=== PATIENT | male | born 1970 | race Caucasian/White ===

== ENCOUNTER 2018-02-10 08:54 | Outpatient (CLI) | payer OTHER ==
[2018-02-10] MEDS ORDERED: GADOBUTROL 10 MMOL/10 ML VIAL ONE (09:00)
[2018-02-10] MEDS ORDERED: GADOBUTROL 10 MMOL/10 ML VIAL IVP ONE (09:57)
--- NOTE | 2018-02-10 15:57 | MRI Report ---
Reason: HEADACHE Procedure Date: 02/10/2018 Accession Number: [id number] / [id number] Procedure: MRI - Brain W/WO CPT Code: FULL RESULT: EXAM: MRI BRAIN WITHOUT AND WITH CONTRAST EXAM DATE: 02/10/2018 09:05 AM. CLINICAL HISTORY: Headache. COMPARISON: No prior MRI. TECHNIQUE: Multiplanar, multisequence T1-weighted and fluid-sensitive MR sequences of the brain were performed. Sequences optimized for routine evaluation. Other: None. IV Contrast: 10 mL Gadavist. Per the communications technologist's notes placed on the exam requisition, the patient had allergic reaction to 10 mL IV Gadavist, hives were observed and on-site staff Dr. Braden was notified and he administered 50 mg of Benadryl intravenously. The patient was then reportedly observed starting at 10:10 AM and released at 10:45 AM after symptoms had resolved. FINDINGS: Brain Volume: Normal for age. 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 No other midline cerebral anomaly. No restricted diffusion to suggest acute or recent ischemic infarct. No evidence for cerebral hemorrhage or edema. No mass effect, midline shift or abnormal subdural fluid collection. Normal-appearing white matter. No intracranial enhancing or space-occupying mass. Ventricles/Cisterns: No hydrocephalus. No abnormal extra-axial fluid collection or hemorrhage. Orbits: No significant asymmetry or focal mass. Borderline findings of symmetric proptosis, clinical correlation is suggested. Sella Turcica: The pituitary gland, cavernous sinuses, suprasellar cistern and optic chiasm are unremarkable. IAC: Symmetric and unremarkable. Vasculature: Normal signal flow void is seen in the major arterial structures at the skull base. The dural sinuses are patent and enhance normally. Sinuses: No acute sinus disease. Bones: No focal pathologic appearing marrow signal changes. Other: None. IMPRESSION: 1. 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 2. No acute intracranial abnormality or enhancing mass, otherwise unremarkable appearance of the brain. 3. Possible symmetric exophthalmus, clinical correlation is suggested. No focal or asymmetric intraorbital mass is identified. RADIA
== END 2018-02-10 08:55 | disposition home or self-care (01) ==
LOC: DI 08:54
PROVIDERS: ATTEND Nurse Practitioner Family
DX: R51 Headache (principal)
CPT/HCPCS: 70553; A9585

== ENCOUNTER 2020-04-09 09:34 | Day surgery (SDC) | payer OTHER ==
[2020-04-09] MEDS ORDERED: LACTATED RINGERS 1,000 ML IV ONE ×2 (09:41→11:48)
[2020-04-09] MEDS ORDERED: MIDAZOLAM 2 MG/2 ML VIAL ONE (11:21)
[2020-04-09] MEDS ORDERED: fentaNYL 250 MCG/5 ML VIAL ONE (11:21)
[2020-04-09 12:16] VITALS: BP 126/92
== END 2020-04-09 09:35 | disposition home or self-care (01) ==
LOC: SDS 09:34
PROVIDERS: ATTEND Surgery
PROC: 0DBL8ZZ Excision of Transverse Colon, Via Natural or Artificial Opening Endoscopic (ICD-10-PCS; 2020-04-09)
PROC: 0DBN8ZX Excision of Sigmoid Colon, Via Natural or Artificial Opening Endoscopic, Diagnostic (ICD-10-PCS; 2020-04-09)
PROC: 0DBP8ZZ Excision of Rectum, Via Natural or Artificial Opening Endoscopic (ICD-10-PCS; 2020-04-09)
PROC: 0DBH8ZX Excision of Cecum, Via Natural or Artificial Opening Endoscopic, Diagnostic (ICD-10-PCS; principal; 2020-04-09 10:30)
DX: K62.5 Hemorrhage of anus and rectum (principal); D12.3 Benign neoplasm of transverse colon; K62.1 Rectal polyp; R19.4 Change in bowel habit; R10.32 Left lower quadrant pain; K64.8 Other hemorrhoids
CPT/HCPCS: 45380; J3010; J7120

== ENCOUNTER 2020-04-15 15:16 | Outpatient (CLI) | payer OTHER | END 2020-04-15 15:17 | disposition critical access hospital (66) | LOC: EMS 15:16 | PROVIDERS: ATTEND Emergency Medicine | DX: R07.9 Chest pain, unspecified (principal) | CPT/HCPCS: A0425; A0427 ==

== ENCOUNTER 2020-04-15 15:39 | Emergency (ER) | payer OTHER ==
[2020-04-15 16:00] LABS: BASOPHILS % (AUTO) 0.3 %; EOSINOPHILS # (AUTO) 0.4 10^3/uL (0.0-0.7); EOSINOPHILS % (AUTO) 3.8 %; HGB - HEMOGLOBIN 15.9 g/dL (14.0-18.0); LYMPHOCYTES # (AUTO) 2.2 10^3/uL (1.5-3.5); LYMPHOCYTES % (AUTO) 22.1 %; MEAN CORPUSCULAR HEMOGLOBIN 29.1 pg (27.0-31.0); MEAN CORPUSCULAR HGB CONC 33.5 g/dL (32.0-36.0); MEAN CORPUSCULAR VOLUME 86.8 fL (80.0-94.0); MONOCYTES # (AUTO) 0.6 10^3/uL (0.0-1.0); MONOCYTES % (AUTO) 5.8 %; NEUTROPHILS # (AUTO) 6.8 10^3/uL (1.5-6.6); NEUTROPHILS % (AUTO) 67.8 %; PLT - PLATELET COUNT 264 10^3/uL (130-450); RED BLOOD COUNT 5.46 10^6/uL (4.70-6.10); RED CELL DISTRIBUTION WIDTH 12.7 % (12.0-15.0); WHITE BLOOD COUNT 10.1 x10^3/uL (4.8-10.8)
--- NOTE | 2020-04-15 16:12 | XRAY Report ---
PROCEDURE: Chest 1 View X-Ray INDICATIONS: Chest Pain TECHNIQUE: One view of the chest was acquired. COMPARISON: FINDINGS: Surgical changes and devices: None. Lungs and pleura: No pleural effusions or pneumothorax. Lungs are clear. Mediastinum: Mediastinal contours appear normal. Heart size is normal. Bones and chest wall: No suspicious bony lesions. Overlying soft tissues appear unremarkable. IMPRESSION: No acute disease Reviewed by: Foreign Mclean MD on 04/15/2020 4:10 PM PST Approved by: Foreign Mclean MD on 04/15/2020 4:10 PM PST Station ID: [id number]
[2020-04-15 16:16] LABS: ALBUMIN 4.3 g/dL (3.2-5.5); ALBUMIN/GLOBULIN RATIO 1.5 (1.0-2.2); BILIRUBIN,TOTAL 0.9 mg/dL (0.2-1.0); CALCIUM 9.2 mg/dL (8.5-10.3); CREATININE 1.1 mg/dL (0.6-1.2); TOTAL PROTEIN 7.2 g/dL (6.7-8.2)
[2020-04-15] MEDS ORDERED: ASPIRIN CHEW 81 MG TABLET PO STA (16:21)
--- NOTE | 2020-04-15 16:31 | ED Physician Documentation ---
PD HPI CHEST PAIN - Stated complaint Stated Complaint: CP/TIGHTNESS - Chief complaint Chief Complaint: Cardiac - History obtained from History obtained from: Patient - Additional information Additional information: 49-year-old male presents to the emergency department with chest tightness that started about 2-1/2 hours prior to arrival. Symptoms are now resolved. He states that he was taking his daughter to her first volleyball game. Has a history of anxiety and initially thought that this may be due to his anxiety, but states that his heart "did something it should not do". Unable to describe this further. The chest tightness is nonradiating. Has never had any cardiac issues in the past. States has had normal cardiac work-ups in the past. No recent fevers, chills, cough. Review of Systems Ten Systems: 10 systems reviewed and negative Constitutional: denies: Fever, Chills Throat: denies: Sore throat Respiratory: denies: Cough GI: denies: Nausea, Vomiting, Diarrhea Skin: denies: Rash Musculoskeletal: denies: Neck pain, Back pain Neurologic: denies: Headache PD PAST MEDICAL HISTORY - Past Medical History Past Medical History: Yes Cardiovascular: Hypertension Psych: Anxiety, Post traumatic stress disorder - Past Surgical History Past Surgical History: Yes Ortho: ACL reconstruction, Other HEENT: Rhinoplasty - Present Medications Home Medications: Ambulatory Orders Medication Instructions Recorded Confirmed Atorvastatin [Lipitor] 40 mg PO DAILY 04/08/20 04/15/20 LORazepam [Ativan] 0.5 mg PO BID PRN #5 04/15/20 - Allergies Allergies/Adverse Reactions: Allergies Allergy/AdvReac Type Severity Reaction Status Date / Time gadobutrol [From Gadavist] Allergy Mild Hives Verified 02/10/18 13:21 bee venom protein (honey bee) Allergy Anaphylaxis Verified 10/09/19 17:06 dexamethasone [From Decadron] Allergy Hallucinati Verified 10/09/19 17:06 ons lisinopril Allergy Unknown Verified 04/15/20 15:55 - Social History Does the pt smoke?: No Smoking Status: Never smoker Does the pt drink ETOH?: No Does the pt have substance abuse?: No Substance Use and Type: Marijuana - Immunizations Immunizations are current?: Yes - POLST Patient has POLST: No PD ED PE NORMAL - Vitals Vital signs reviewed: Yes - General General: Alert and oriented X 3, No acute distress - HEENT HEENT: Moist mucous membranes - Neck Neck: Supple, no meningeal sign - Cardiac Cardiac: RRR, Strong equal pulses - Respiratory Respiratory: No respiratory distress, Clear bilaterally - Abdomen Abdomen: Soft, Non tender, Non distended - Derm Derm: Warm and dry - Extremities Extremities: No edema, No calf tenderness / cord - Neuro Neuro: Alert and oriented X 3 - Psych Psych: Normal mood, Normal affect Results - Vitals Vitals: Vital Signs - 24 hr 04/15/20 04/15/20 04/15/20 15:51 16:00 17:38 Temperature 36.8 C 37.1 C Heart Rate 96 87 83 Respiratory 14 11 L 18 Rate Blood Pressure 150/98 H 124/94 H 110/88 H O2 Saturation 97 92 98 Oxygen O2 Source Room air - EKG (time done) 1543 Rate: Rate (enter#) (86) Rhythm: NSR [place]: Normal Intervals: Normal [place] QRS: Normal Ischemia: Non specific changes - Labs Labs: Laboratory Tests 04/15/20 04/15/20 04/15/20 15:53 15:53 15:53 WBC 10.1 RBC 5.46 Hgb 15.9 Hct 47.4 MCV 86.8 MCH 29.1 MCHC 33.5 RDW 12.7 Plt Count 264 MPV 9.0 Neut # (Auto) 6.8 H Lymph # (Auto) 2.2 [place] # (Auto) 0.6 Eos # (Auto) 0.4 Baso # (Auto) 0.0 Absolute Nucleated RBC 0.00 Nucleated RBC % 0.0 Sodium 138 Potassium 3.2 L Chloride 103 Carbon Dioxide 21 Anion Gap 14.0 H BUN 18 Creatinine 1.1 Estimated GFR (MDRD) 71 L Glucose 114 H Calcium 9.2 Total Bilirubin 0.9 AST 29 ALT 39 Alkaline Phosphatase 56 Troponin I High Sens 5.1 Total Protein 7.2 Albumin 4.3 Globulin 2.9 Albumin/Globulin Ratio 1.5 Lipase 20 L 04/15/20 17:50 WBC RBC Hgb Hct MCV MCH MCHC RDW Plt Count MPV Neut # (Auto) Lymph # (Auto) [place] # (Auto) Eos # (Auto) Baso # (Auto) Absolute Nucleated RBC Nucleated RBC % Sodium Potassium Chloride Carbon Dioxide Anion Gap BUN Creatinine Estimated GFR (MDRD) Glucose Calcium Total Bilirubin AST ALT Alkaline Phosphatase Troponin I High Sens 9.2 Total Protein Albumin Globulin Albumin/Globulin Ratio Lipase - Rads (name of study) cxr Radiology: Prelim report reviewed, EMP read contemporaneously, See rad report (no acute disease) PD MEDICAL DECISION MAKING - ED course Complexity details: reviewed results, re-evaluated patient, considered differential (No ST elevation [place], no aortic dissection, no PE, no tension pneumothorax, no aortic aneurysm), d/w patient ED course: 49-year-old male presents with chest pain today. Negative troponin x2. No acute findings on EKG or chest x-ray. Symptoms resolved in the emergency department. He states he has a normal cardiac work-ups in the past. Patient is well-appearing, nontoxic. Afebrile. No hypoxia. No respiratory distress. No evidence of PE, pneumothorax, ACS. Patient counseled regarding signs and symptoms for which I believe and urgent re-evaluation would be necessary. Patient with good understanding of and agreement to plan and is comfortable going home at this time This document was made in part using voice recognition software. While efforts are made to proofread this document, sound alike and grammatical errors may occur. Departure - Departure Disposition: 01 Home, Self Care Clinical Impression: Anxiety Chest pain Qualifiers: Chest pain type: unspecified Qualified Code(s): R07.9 - Chest pain, unspecified Condition: Good Instructions: ED Chest Pain Atypical Unkn Cause Follow-Up: BRITT DAVENPORT ARNP [Primary Care Provider] - Within 1 week Prescriptions: LORazepam [Ativan] 0.5 mg PO BID PRN #5 PRN Reason: Anxiety Comments: Follow-up with your doctor for further care. Return if you worsen. You should start on a baby aspirin daily. You should follow-up with your doctor within the next week to have a cardiac stress test performed. Your testing is normal tonight. You are not to drive or operate heavy machinery while taking the ativan. Discharge Date/Time: 04/15/20 20:21
[2020-04-15 17:38] VITALS: BP 110/88
== END 2020-04-15 20:21 | disposition home or self-care (01) ==
LOC: EDUNIT# → SUPCPDRO 15:39 → ED 15:39
DX: R07.9 Chest pain, unspecified (principal); F41.9 Anxiety disorder, unspecified; I10 Essential (primary) hypertension
CPT/HCPCS: 36415; 71045; 80053; 83690; 84484; 85025; 93005; 99283; 99284; A9270

== ENCOUNTER 2022-04-26 17:06 | Outpatient (CLI) | payer OTHER | END 2022-04-26 23:59 | disposition short-term general hospital (02) | LOC: EMS 17:06 | DX: R00.2 Palpitations (principal); R07.9 Chest pain, unspecified | CPT/HCPCS: A0425; A0429 ==

== ENCOUNTER 2023-05-06 10:17 | Outpatient (CLI) | payer OTHER ==
--- NOTE | 2023-05-09 19:10 | MRI Report ---
PROCEDURE: Shoulder RT WO INDICATIONS: SHOULDER DISLOCATION TECHNIQUE: Noncontrast oblique coronal T2 fast spin echo with fat saturation, oblique sagittal T1 spin echo and T2 fast spin echo with fat saturation, axial T1 spin echo and T2 fast spin echo with fat saturation t hrough the shoulder. COMPARISON: None. FINDINGS: Image quality: Excellent. Rotator cuff: There is moderate supraspinatus, infraspinatus and subscapularis tendinosis. There is l ow-grade partial-6 and tear of the supraspinatus No high-grade rotator cuff tendon tear. No rotator c uff muscle atrophy. Bones and bursae: No bone marrow contusions or fractures. Moderate acromioclavicular and glenohumera l joint degeneration. The acromion demonstrates conventional anatomy, without an os acromiale. No p athologic subacromial/subdeltoid bursal fluid is present. Capsule and soft tissues: In the absence of intra-articular contrast, the labrum and glenohumeral li gaments appear intact. There is longitudinal tear of the long head of the biceps tendon. There is flu id within the biceps tendon sheath consistent with tenosynovitis. The rotator interval appears maria isabel l, without fibrosis. The coracohumeral ligament is normal in thickness. IMPRESSION: 1. Moderate supraspinous, infraspinatus and subscapularis tendinosis. No high-grade tendon tear or ro tator cuff muscle atrophy. 2. Longitudinal tear of the long head of the biceps tendon with associated tenosynovitis. No biceps t endon rupture. 3. Subcoracoid bursitis. 4. Moderate acromioclavicular and glenohumeral joint degeneration. Reviewed by: Marck Ivory MD on 05/09/2023 6:08 PM AKDT Approved by: Marck Ivory MD on 05/09/2023 6:08 PM AKDT Station ID: [id number]
== END 2023-05-06 10:18 | disposition home or self-care (01) ==
LOC: DI 10:17
PROVIDERS: ATTEND Family Medicine
DX: S43.004A Unspecified dislocation of right shoulder joint, initial encounter (principal); M67.813 Other specified disorders of tendon, right shoulder; S46.111A Strain of muscle, fascia and tendon of long head of biceps, right arm, initial encounter; M75.51 Bursitis of right shoulder; M19.011 Primary osteoarthritis, right shoulder